=== PATIENT | female | born 2000 | race Caucasian/White ===

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

== ENCOUNTER → 2018-06-03 | Outpatient (CLI) | payer OTHER ==
[~2018-06-03] VITALS: Ht 160 cm; Wt 56.7 kg
[~2018-06-03] MED LIST changes: +DROSPIRENONE-E1 EAC1 PO
== END ==
LOC: M.ULTRA 12-18 15:01
DX: D73.4 Cyst of spleen (principal); R16.1 Splenomegaly, not elsewhere classified; K76.89 Other specified diseases of liver